=== PATIENT | male | born 1965 | race African-American/Black ===

== ENCOUNTER → 2017-04-20 | Outpatient (CLI) | payer BC ==
[2016-05-31 08:56] VITALS: BP 154/95
[~2017-04-20] MED LIST: ASPI325T11 PO; ASPI81TA2 PO; ATOR40TA59 PO; CLOP75TA PO; CYAN25008 PO; FOLI1TAB16 PO; FURO-69 PO; FURO40TA4 PO; LISI10TA2 PO; METO25TA4 PO; POTA10TA12 PO; THIA100T4 PO
[2017-04-20 13:19] LABS: CREATININE 1.1 mg/dL (0.7-1.3); GFR 85.4
[2017-04-20 13:20] LABS: CALCIUM 8.9 mg/dL (8.5-10.1)
== END | disposition home or self-care (01) ==
LOC: LAB 12:53
PROVIDERS: ATTEND Nurse Practitioner
DX: I50.22 Chronic systolic (congestive) heart failure (principal)
CPT/HCPCS: 36415; 80048

== ENCOUNTER → 2017-08-04 | Outpatient (CLI) | payer BC ==
[2016-05-31 08:56] VITALS: BP 154/95
[~2017-08-04] MED LIST changes: +ASPI-630 PO; -ASPI81TA2 PO
--- NOTE | 2017-08-04 12:24 | CARD ---
APPROVED REPORT EXAM: Two-dimensional and M-mode echocardiogram with Doppler and color Doppler. Other Information Quality : GoodHR: 60bpm Rhythm : Pacemaker INDICATION Cardiomyopathy 2D DIMENSIONS Left Atrium(2D)4.5 (1.6-4.0cm)IVSd0.9 (0.7-1.1cm) Aortic Root(2D)2.7 (2.0-3.7cm)LVDd5.5 (3.9-5.9cm) LVOT Diameter2.3 (1.8-2.4cm)PWd0.8 (0.7-1.1cm) LVDs4.6 (2.5-4.0cm)FS (%) 17.8 % SV54.9 mlLVEF(%)36.5 (>50%) Aortic Valve AoV Peak Tor.100.9cm/sAoV VTI21.8cm AO Peak GR.4.1mmHgLVOT Peak Tor.79.5cm/s AO Mean GR.2mmHgAVA (VMAX)3.24cm2 Mitral Valve MV E Lvldmgrr81.3cm/sMV E Peak Gr.4mmHg MV DECEL [id number] A Kjcykmqt02.3cm/s MV E Mean Gr.1mmHgE/A Ratio1.2 MV A Ofsdccbx19sn Pulmonary Valve PV Peak Roomnxeu29.1cm/s Tricuspid Valve TR P. Btuiavcj098ou/sTR Peak Gr.31mmHg Pulmonary Vein S1 Ebotntks31.6cm/sD2 Larcnrvu88.9cm/s PVa [id number] LEFT VENTRICLE The left ventricle is normal size. There is normal left ventricular wall thickness. Left ventricle sy stolic function is moderately impaired. The Ejection Fraction is 30-35%. Akinetic base to mid inferio r and posterior [place]. The left ventricular diastolic function and filling is normal for age. No left ventricle thrombus noted on this study. RIGHT VENTRICLE The right ventricle is normal size. There is normal right ventricular wall thickness. The right ventr icular systolic function is normal. There is a pacemaker lead in the right ventricle. ATRIA The left atrium size is normal. The right atrium size is normal. The interatrial septum is intact wit h no evidence for an atrial septal defect or patent foramen ovale as noted on 2-D or Doppler imaging. AORTIC VALVE The aortic valve is mildly sclerotic. The aortic valve is trileaflet. Doppler and Color Flow revealed no significant aortic regurgitation. There is no significant aortic valvular stenosis. MITRAL VALVE Mitral annular calcification is mild. The mitral valve leaflets are thickened. There is no evidence o f mitral valve prolapse. There is no mitral valve stenosis. Doppler and Color Flow revealed mild mitr al regurgitation. TRICUSPID VALVE Doppler and Color Flow revealed mild tricuspid regurgitation. The pulmonary artery systolic pressure is estimated at 34 mmHg. There is mild pulmonary hypertension. PULMONIC VALVE The pulmonary valve is normal in structure and function. Doppler and Color Flow revealed no pulmonic valvular regurgitation. There is no pulmonic valvular stenosis. GREAT VESSELS The aortic root is normal in size. The ascending aorta is normal in size. The pulmonary artery is nor mal. The IVC is normal in size and collapses >50% with inspiration. PERICARDIAL EFFUSION There is no evidence of significant pericardial effusion. Critical Notification Critical Value: No <Conclusion> Left ventricle systolic function is moderately impaired. Akinetic base-mid inferior and posterior [place]. The Ejection Fraction is 30-35%. Mild mitral regurgitation. Mild tricuspid regurgitation. The pulmonary artery systolic pressure is estimated at 34 mmHg. There is no evidence of significant pericardial effusion.
== END | disposition home or self-care (01) ==
LOC: ECHO 11:00
PROVIDERS: ATTEND Internal Medicine Cardiovascular Disease
DX: I08.1 Rheumatic disorders of both mitral and tricuspid valves (principal); I42.9 Cardiomyopathy, unspecified
CPT/HCPCS: 93306

== ENCOUNTER → 2019-06-23 | Outpatient (CLI) | payer BC ==
[2016-05-31 08:56] VITALS: BP 154/95
[~2019-06-23] MED LIST changes: -THIA100T4 PO; +THIA100T57 PO
--- NOTE | 2019-06-23 09:22 | CARD ---
MR#: [id number] Date of Study: 06/23/2019 Ordering Physician: TIFFANY AYALA, Referring Physician: TIFFANY AYALA, Tech: Yesi Ramirez BEATRIZ APPROVED REPORT EXAM: Two-dimensional and M-mode echocardiogram with Doppler and color Doppler. Other Information Quality : GoodHR: 72bpm Rhythm : NSR INDICATION Cardiomyopathy 2D DIMENSIONS RVDd2.9 (2.9-3.5cm)Left Atrium(2D)4.3 (1.6-4.0cm) IVSd0.9 (0.7-1.1cm)Aortic Root(2D)3.1 (2.0-3.7cm) LVDd5.8 (3.9-5.9cm)LVOT Diameter2.1 (1.8-2.4cm) PWd0.8 (0.7-1.1cm)LVDs4.5 (2.5-4.0cm) FS (%) 22.7 %SV74.1 ml LVEF(%)45.0 (>50%) M-Mode DIMENSIONS Left Atrium(MM)4.06 (2.5-4.0cm)Aortic Root3.51 (2.2-3.7cm) Aortic Valve AoV Peak Tor.104.2cm/sAoV VTI22.7cm AO Peak GR.4.3mmHgLVOT Peak Tor.86.6cm/s AO Mean GR.3mmHgAVA (VMAX)2.96cm2 SHAKEEL (VTI)3.00cm2 Mitral Valve MV E Yidqlqcy59.9cm/sMV DECEL QTQQ874yf MV A Dsfyleeu71.0cm/sE/A Ratio1.2 Tricuspid Valve TR P. Rlnfwhkw005uc/sRAP PJDSDMRS0zbDq TR Peak Gr.17tpOkSDKO89qfSw Pulmonary Vein S1 Csoezrgi98.1cm/sD2 Vkcknppw24.7cm/s PVa [id number] LEFT VENTRICLE The Left Ventricle is borderline dilated. There is normal left ventricular wall thickness. The ejecti on fraction is moderately impaired. EF 30-35% There is global hypokinesis of the left ventricle. The posterolateral wall is severely hypokinetic. Transmitral Doppler flow pattern is Grade II-pseudonorma l filling dynamics. RIGHT VENTRICLE The right ventricle is normal size. There is normal right ventricular wall thickness. The right ventr icular systolic function is normal. Pacer lead noted in RV/RA. ATRIA The left atrium is mildly dilated. The right atrium size is normal. The interatrial septum is intact with no evidence for an atrial septal defect or patent foramen ovale as noted on 2-D or Doppler imagi ng. AORTIC VALVE The aortic valve is normal in structure and function. The aortic valve is trileaflet. Doppler and Col or Flow revealed no significant aortic regurgitation. There is no significant aortic valvular stenosi s. There is no aortic valvular vegetation. MITRAL VALVE The mitral valve is thickened but opens well. There is no evidence of mitral valve prolapse. There is no mitral valve stenosis. Doppler and Color-flow revealed moderate mitral regurgitation. TRICUSPID VALVE The tricuspid valve is normal in structure and function. Doppler and Color Flow revealed trace tricus pid regurgitation. The PA pressure was estimated at 29 mmHg. There is no tricuspid valve prolapse or vegetation. There is no tricuspid valve stenosis. PULMONIC VALVE Doppler and Color Flow revealed no pulmonic valvular regurgitation. There is no pulmonic valvular raven nosis. GREAT VESSELS The aortic root is normal in size. The ascending aorta is normal in size. The IVC is normal in size a nd collapses >50% with inspiration. PERICARDIAL EFFUSION There is no evidence of significant pericardial effusion. Critical Notification Critical Value: No <Conclusion> The ejection fraction is moderately impaired. EF 30-35% There is global hypokinesis of the left ventricle. The posterolateral wall is severely hypokinetic. Pacer lead noted in RV/RA. Doppler and Color-flow revealed moderate mitral regurgitation. Signed by : Elio Méndez, Electronically Approved : 06/23/2019 09:22:18
== END | disposition home or self-care (01) ==
LOC: ECHO 07:39
PROVIDERS: ATTEND Internal Medicine Cardiovascular Disease
DX: I34.0 Nonrheumatic mitral (valve) insufficiency (principal)
CPT/HCPCS: 93306

== ENCOUNTER 2019-08-11 11:49 | Inpatient (IN) | payer BC ==
[~2019-08-11] VITALS: Ht 180.3 cm; Wt 72.6 kg
--- NOTE | 2019-08-11 12:26 | PHYS DOC ---
Past Medical History Past Medical History: A-Fib, Diabetes-Type II, High Cholesterol, Hypertension, [place] Past Surgical History: Pacemaker, Other Additional Past Surgical Histo: cardiac cath with stent placement Alcohol Use: Heavy Drug Use: None Adult General Chief Complaint Chief Complaint: BLOODY STOOL HPI HPI Patient is a pleasant 54-year-old male, with a past history of cardiomyopathy, on aspirin and Plavix, who presents to the emergency department for evaluation. He states he had 2-3 episodes of grossly bloody diarrhea this morning. He denies any pain. He has not had any fevers or chills, nausea, vomiting, denies any recent antibiotic use. There are no alleviating or exacerbating factors to his symptoms. He does not report any history of hemorrhoids. Review of Systems Review of Systems Constitutional: Denies fever or chills [] Eyes: Denies change in visual acuity, redness, or eye pain [] HENT: Denies nasal congestion or sore throat [] Respiratory: Denies cough or shortness of breath [] Cardiovascular: The patient denies any shortness of breath, chest pain, palpitations, or orthopnea [] GI: Denies abdominal pain, nausea, vomiting, or brian diarrhea [] : Denies dysuria or hematuria [] Musculoskeletal: Denies back pain or joint pain [] Integument: Denies rash or skin lesions [] Neurologic: Denies headache, focal weakness or sensory changes [] Endocrine: Denies polyuria or polydipsia [] All other systems were reviewed and found to be within normal limits, except as documented in this note. Allergies Allergies Allergies Coded Allergies Type Severity Reaction Last Updated Verified No Known Drug Allergies 12/05/15 No Physical Exam Physical Exam PHYSICAL EXAM: CONSTITUTIONAL: Well developed, well nourished HEAD: normocephalic, atraumatic EENT: PERRL, EOMI. Conjunctivae normal color, sclerae non-icteric; moist mucous membranes. NECK: Supple, non-tender; no meningismus. LUNGS: Lungs CTA, breathing even and unlabored. Normal air movement. HEART: Regular rate and rhythm, no murmur CHEST: No deformity; non-tender ABDOMEN: The abdomen is soft, and non-tender, no masses or bruits. EXTREM: Normal ROM; no deformity, no calf tenderness. Normal pulses palpable in all extremities. There is no pedal edema. SKIN: No rash; no diaphoresis NEURO: Alert; normal speech and cognition; CN's grossly intact; strength grossly intact without focal deficit. BACK: No CVA TTP. RECTAL EXAM: No hemorrhoids or fissures noted. Current Patient Data Vital Signs Vital Signs Date Time Temp Pulse Resp B/P (MAP) Pulse Ox O2 Delivery O2 Flow Rate FiO2 08/11/19 12:00 98.8 73 28 177/92 (120) 98 Room Air 98.8 Lab Values Laboratory Tests Test 08/11/19 12:15 White Blood Count 10.1 x10^3/uL (4.0-11.0) Red Blood Count 5.35 x10^6/uL (4.30-5.70) Hemoglobin 15.6 g/dL (13.0-17.5) Hematocrit 46.3 % (39.0-53.0) Mean Corpuscular Volume 87 fL (79-100) Mean Corpuscular Hemoglobin 29 pg (25-35) Mean Corpuscular Hemoglobin Concent 34 g/dL (31-37) Red Cell Distribution Width 14.2 % (11.5-14.5) Platelet Count 264 x10^3/uL (140-400) Neutrophils (%) (Auto) 59 % (31-73) Lymphocytes (%) (Auto) 31 % (24-48) Monocytes (%) (Auto) 8 % (0-9) Eosinophils (%) (Auto) 1 % (0-3) Basophils (%) (Auto) 1 % (0-3) Neutrophils # (Auto) 6.0 x10^3/uL (1.8-7.7) Lymphocytes # (Auto) 3.1 x10^3/uL (1.0-4.8) Monocytes # (Auto) 0.8 x10^3/uL (0.0-1.1) Eosinophils # (Auto) 0.0 x10^3/uL (0.0-0.7) Basophils # (Auto) 0.1 x10^3/uL (0.0-0.2) Prothrombin Time 13.2 SEC (11.7-14.0) Prothrombin Time INR 1.0 (0.8-1.1) Sodium Level 142 mmol/L (136-145) Potassium Level 3.7 mmol/L (3.5-5.1) Chloride Level 107 mmol/L (98-107) Carbon Dioxide Level 24 mmol/L (21-32) Anion Gap 11 (6-14) Blood Urea Nitrogen 12 mg/dL (8-26) Creatinine 1.0 mg/dL (0.7-1.3) Estimated GFR (Cockcroft-Gault) 94.2 BUN/Creatinine Ratio 12 (6-20) Glucose Level 111 mg/dL (70-99) H Calcium Level 9.1 mg/dL (8.5-10.1) Total Bilirubin 0.3 mg/dL (0.2-1.0) Aspartate Amino Transferase (AST) 16 U/L (15-37) Alanine Aminotransferase (ALT) 20 U/L (16-63) Alkaline Phosphatase 140 U/L (46-116) H Total Protein 7.6 g/dL (6.4-8.2) Albumin 3.6 g/dL (3.4-5.0) Albumin/Globulin Ratio 0.9 (1.0-1.7) L Laboratory Tests 08/11/19 12:15 Laboratory Tests 08/11/19 12:15 EKG EKG [] Radiology/Procedures Radiology/Procedures [] Course & Med Decision Making Course & Med Decision Making Pertinent Lab studies reviewed. (See chart for details) []2:00 PM: The patient's condition remains a stable. Although his hemoglobin is normal, given the nature of his bleeding, maroonish stool, as well as his use of aspirin and Plavix, and history of cardiomyopathy, I do believe he warrants more prompt a diagnosis and evaluation. Thus the hospitalist has graciously agreed to admit the patient for further evaluation and GI consult. Dragon Disclaimer Dragon Disclaimer This electronic medical record was generated, in whole or in part, using a voice recognition dictation system. Departure Departure Impression: Primary Impression: Rectal bleeding Additional Impression: Cardiomyopathy Disposition: 09 ADMITTED INPATIENT Admitting Physician: HIMS Condition: STABLE Referrals: NO PCP (PCP) Problem Qualifiers AUREA JONES MD Aug 11, 2019 12:26
[2019-08-11 12:27] LABS: BASO # 0.1 x10^3/uL (0.0-0.2); BASO % 1 % (0-3); EOS % 1 % (0-3); HEMATOCRIT 46.3 % (39.0-53.0); HEMOGLOBIN 15.6 g/dL (13.0-17.5); LYMPH # 3.1 x10^3/uL (1.0-4.8); LYMPH % 31 % (24-48); MEAN CORPUSCULAR HEMOGLOBIN 29 pg (25-35); MEAN CORPUSCULAR HGB CONC 34 g/dL (31-37); MEAN CORPUSCULAR VOLUME 87 fL (79-100); MONO # 0.8 x10^3/uL (0.0-1.1); MONO % 8 % (0-9); NEUT % 59 % (31-73); PLATELET COUNT 264 x10^3/uL (140-400); RED BLOOD COUNT 5.35 x10^6/uL (4.30-5.70); RED CELL DISTRIBUTION WIDTH 14.2 % (11.5-14.5); WHITE BLOOD COUNT 10.1 x10^3/uL (4.0-11.0)
[2019-08-11 12:34] LABS: PROTHROMBIN TIME PATIENT 13.2 SEC (11.7-14.0)
[2019-08-11 12:43] LABS: CALCIUM 9.1 mg/dL (8.5-10.1); GFR 94.2; POTASSIUM 3.7 mmol/L (3.5-5.1)
[2019-08-11 12:47] LABS: ALBUMIN 3.6 g/dL (3.4-5.0); ALBUMIN/GLOBULIN RATIO 0.9 (1.0-1.7); TOTAL BILIRUBIN 0.3 mg/dL (0.2-1.0); TOTAL PROTEIN 7.6 g/dL (6.4-8.2)
--- NOTE | 2019-08-11 14:02 | PDOC1 ---
History and Physical Date of Admission Date of Admission DATE: 08/11/19 TIME: 14:02 Identification/Chief Complaint Chief Complaint seen in er , 54-year-old male, with a past history of cardiomyopathy, on aspirin and Plavix, who presents to the emergency department for evaluation. He states he had 2-3 episodes of grossly bloody diarrhea this morning. He denies any pain. He has not had any fevers or chills, nausea, vomiting, denies any recent antibiotic use. There are no alleviating or exacerbating factors to his symptoms. He does not report any history of hemorrhoids. no colonoscopy hx passed about a cup of bright red blood this AM Past Medical History Past Medical History Past Medical History Past Medical History: A-Fib, Diabetes-Type II, High Cholesterol, Hypertension, [place] Past Surgical History: Pacemaker, Other Additional Past Surgical Histo: cardiac cath with stent placement Alcohol Use: Heavy Drug Use: None Insertion of dual chamber ICD via the left subclavian approach. fhx htn Cardiovascular: CAD, HTN, Hyperlipidemia Pulmonary: No pertinent hx CENTRAL NERVOUS SYSTEM: Other GI: No pertinent hx Heme/Onc: No pertinent hx Hepatobiliary: No pertinent hx Psych: No pertinent hx Musculoskeletal: Osteoarthritis Rheumatologic: No pertinent hx Infectious disease: No pertinent hx Renal/: No pertinent hx Endocrine: No pertinent hx Dermatology: No pertinent hx Past Surgical History Past Surgical History: Other Family History Family History: Coronary Artery Disease, High Cholestrol Social History Smoke: <1 pack per day ALCOHOL: heavy Drugs: None Current Problem List Problem List Problems Medical Problems: (1) Cardiomyopathy Status: Acute (2) Rectal bleeding Status: Acute Current Medications Current Medications Active Scripts Active Klor-Con M10 (Potassium Chloride) 10 Meq Tab.er.prt 10 Meq PO DAILYWBKFT Folic Acid 1 Mg Tablet 1 Mg PO DAILY Metoprolol Tartrate 25 Mg Tablet 25 Mg PO BID Lisinopril 10 Mg Tablet 10 Mg PO DAILY Clopidogrel (Clopidogrel Bisulfate) 75 Mg Tablet 75 Mg PO DAILYWBKFT Atorvastatin Calcium 40 Mg Tablet 40 Mg PO QHS Aspirin Ec (Aspirin) 325 Mg Tablet.dr 325 Mg PO DAILYWBKFT Reported Lasix (Furosemide) 20 Mg Tablet 1 Tab PO DAILY Vitamin B12 (Cyanocobalamin (Vitamin B-12)) 2,500 Mcg Tablet 2,500 Mcg PO DAILY Allergies Allergies: Coded Allergies: No Known Drug Allergies (Unverified , 12/05/15) ROS Review of System Review of Systems Review of Systems Constitutional: Denies fever or chills [] Eyes: Denies change in visual acuity, redness, or eye pain [] HENT: Denies nasal congestion or sore throat [] Respiratory: Denies cough or shortness of breath [] Cardiovascular: The patient denies any shortness of breath, chest pain, palpitations, or orthopnea [] GI: Denies abdominal pain, nausea, vomiting, or brian diarrhea [] : Denies dysuria or hematuria [] Musculoskeletal: Denies back pain or joint pain [] Integument: Denies rash or skin lesions [] Neurologic: Denies headache, focal weakness or sensory changes [] Endocrine: Denies polyuria or polydipsia [] 14 PT systems were reviewed and found to be within normal limits, except as documented General: No: Chills, Night Sweats, Fatigue, Malaise, Appetite, Other ALLERGY AND IMMUNOLOGY: No: Hives, Insect Bite Sensitivity, Itchy/Watery Eyes, Nasal Congestion, Post Nasal Drip, Seasonal Allergies, Other Hematological and Lymphatic: YES: Bleeding Problems; No: Blood Clots, Blood Transfusions, Brusing, Night Sweats, Pallor, Swollen Lymph Nodes, Other Gastrointestinal: Yes Hematochezia Physical Exam Physical Exam Physical Exam Physical Exam PHYSICAL EXAM: CONSTITUTIONAL: Well developed, well nourished HEAD: normocephalic, atraumatic EENT: PERRL, EOMI. Conjunctivae normal color, sclerae non-icteric; moist mucous membranes. NECK: Supple, non-tender; no meningismus. LUNGS: Lungs CTA, breathing even and unlabored. Normal air movement. HEART: Regular rate and rhythm, no murmur CHEST: No deformity; non-tender ABDOMEN: The abdomen is soft, and non-tender, no masses or bruits. EXTREM: Normal ROM; no deformity, no calf tenderness. Normal pulses palpable in all extremities. There is no pedal edema. SKIN: No rash; no diaphoresis NEURO: Alert; normal speech and cognition; CN's grossly intact; strength grossly intact without focal deficit. BACK: No CVA TTP. RECTAL EXAM: No hemorrhoids or fissures noted. IN ER General: Oriented X3, Cooperative HEENT: Atraumatic, EOMI, Mucous membr. moist/pink Lungs: Clear to auscultation, Normal air movement Heart: S1S2, RRR, no thrills, no gallops Abdomen: Soft PELVIC: Examination not indicated Extremities: No cyanosis Neuro: Normal speech, Strength at 5/5 X4 ext, Cranial nerves 3-12 NL Psych/Mental Status: Mental status NL, Mood NL Vitals Vitals Vital Signs Date Time Temp Pulse Resp B/P (MAP) Pulse Ox O2 Delivery O2 Flow Rate FiO2 08/11/19 12:00 98.8 73 28 177/92 (120) 98 Room Air 98.8 Labs Labs Laboratory Tests Test 08/11/19 12:15 White Blood Count 10.1 x10^3/uL (4.0-11.0) Red Blood Count 5.35 x10^6/uL (4.30-5.70) Hemoglobin 15.6 g/dL (13.0-17.5) Hematocrit 46.3 % (39.0-53.0) Mean Corpuscular Volume 87 fL (79-100) Mean Corpuscular Hemoglobin 29 pg (25-35) Mean Corpuscular Hemoglobin Concent 34 g/dL (31-37) Red Cell Distribution Width 14.2 % (11.5-14.5) Platelet Count 264 x10^3/uL (140-400) Neutrophils (%) (Auto) 59 % (31-73) Lymphocytes (%) (Auto) 31 % (24-48) Monocytes (%) (Auto) 8 % (0-9) Eosinophils (%) (Auto) 1 % (0-3) Basophils (%) (Auto) 1 % (0-3) Neutrophils # (Auto) 6.0 x10^3/uL (1.8-7.7) Lymphocytes # (Auto) 3.1 x10^3/uL (1.0-4.8) Monocytes # (Auto) 0.8 x10^3/uL (0.0-1.1) Eosinophils # (Auto) 0.0 x10^3/uL (0.0-0.7) Basophils # (Auto) 0.1 x10^3/uL (0.0-0.2) Prothrombin Time 13.2 SEC (11.7-14.0) Prothromb Time International Ratio 1.0 (0.8-1.1) Sodium Level 142 mmol/L (136-145) Potassium Level 3.7 mmol/L (3.5-5.1) Chloride Level 107 mmol/L (98-107) Carbon Dioxide Level 24 mmol/L (21-32) Anion Gap 11 (6-14) Blood Urea Nitrogen 12 mg/dL (8-26) Creatinine 1.0 mg/dL (0.7-1.3) Estimated GFR (Cockcroft-Gault) 94.2 BUN/Creatinine Ratio 12 (6-20) Glucose Level 111 mg/dL (70-99) Calcium Level 9.1 mg/dL (8.5-10.1) Total Bilirubin 0.3 mg/dL (0.2-1.0) Aspartate Amino Transf (AST/SGOT) 16 U/L (15-37) Alanine Aminotransferase (ALT/SGPT) 20 U/L (16-63) Alkaline Phosphatase 140 U/L (46-116) Total Protein 7.6 g/dL (6.4-8.2) Albumin 3.6 g/dL (3.4-5.0) Albumin/Globulin Ratio 0.9 (1.0-1.7) Laboratory Tests Test 08/11/19 12:15 White Blood Count 10.1 x10^3/uL (4.0-11.0) Red Blood Count 5.35 x10^6/uL (4.30-5.70) Hemoglobin 15.6 g/dL (13.0-17.5) Hematocrit 46.3 % (39.0-53.0) Mean Corpuscular Volume 87 fL (79-100) Mean Corpuscular Hemoglobin 29 pg (25-35) Mean Corpuscular Hemoglobin Concent 34 g/dL (31-37) Red Cell Distribution Width 14.2 % (11.5-14.5) Platelet Count 264 x10^3/uL (140-400) Neutrophils (%) (Auto) 59 % (31-73) Lymphocytes (%) (Auto) 31 % (24-48) Monocytes (%) (Auto) 8 % (0-9) Eosinophils (%) (Auto) 1 % (0-3) Basophils (%) (Auto) 1 % (0-3) Neutrophils # (Auto) 6.0 x10^3/uL (1.8-7.7) Lymphocytes # (Auto) 3.1 x10^3/uL (1.0-4.8) Monocytes # (Auto) 0.8 x10^3/uL (0.0-1.1) Eosinophils # (Auto) 0.0 x10^3/uL (0.0-0.7) Basophils # (Auto) 0.1 x10^3/uL (0.0-0.2) Prothrombin Time 13.2 SEC (11.7-14.0) Prothromb Time International Ratio 1.0 (0.8-1.1) Sodium Level 142 mmol/L (136-145) Potassium Level 3.7 mmol/L (3.5-5.1) Chloride Level 107 mmol/L (98-107) Carbon Dioxide Level 24 mmol/L (21-32) Anion Gap 11 (6-14) Blood Urea Nitrogen 12 mg/dL (8-26) Creatinine 1.0 mg/dL (0.7-1.3) Estimated GFR (Cockcroft-Gault) 94.2 BUN/Creatinine Ratio 12 (6-20) Glucose Level 111 mg/dL (70-99) Calcium Level 9.1 mg/dL (8.5-10.1) Total Bilirubin 0.3 mg/dL (0.2-1.0) Aspartate Amino Transf (AST/SGOT) 16 U/L (15-37) Alanine Aminotransferase (ALT/SGPT) 20 U/L (16-63) Alkaline Phosphatase 140 U/L (46-116) Total Protein 7.6 g/dL (6.4-8.2) Albumin 3.6 g/dL (3.4-5.0) Albumin/Globulin Ratio 0.9 (1.0-1.7) Images Images EXAM: Two-dimensional and M-mode echocardiogram with Doppler and color Doppler. Other Information Quality : Good HR: 72bpm Rhythm : NSR INDICATION Cardiomyopathy 2D DIMENSIONS RVDd 2.9 (2.9-3.5cm) Left Atrium(2D) 4.3 (1.6-4.0cm) IVSd 0.9 (0.7-1.1cm) Aortic Root(2D) 3.1 (2.0-3.7cm) LVDd 5.8 (3.9-5.9cm) LVOT Diameter 2.1 (1.8-2.4cm) PWd 0.8 (0.7-1.1cm) LVDs 4.5 (2.5-4.0cm) FS (%) 22.7 % SV 74.1 ml LVEF(%) 45.0 (>50%) M-Mode DIMENSIONS Left Atrium(MM) 4.06 (2.5-4.0cm) Aortic Root 3.51 (2.2-3.7cm) Aortic Valve AoV Peak Tor. 104.2cm/s AoV VTI 22.7cm AO Peak GR. 4.3mmHg LVOT Peak Tor. 86.6cm/s AO Mean GR. 3mmHg SHAKEEL (VMAX) 2.96cm2 SHAKEEL (VTI) 3.00cm2 Mitral Valve MV E Velocity 86.9cm/s MV DECEL TIME 220ms MV A Velocity 71.0cm/s E/A Ratio 1.2 Tricuspid Valve TR P. Velocity 257cm/s RAP ESTIMATE 3mmHg TR Peak Gr. 26mmHg RVSP 29mmHg Pulmonary Vein S1 Velocity 53.1cm/s D2 Velocity 47.7cm/s PVa duration 129msec LEFT VENTRICLE The Left Ventricle is borderline dilated. There is normal left ventricular wall thickness. The ejection fraction is moderately impaired. EF 30-35% There is global hypokinesis of the left ventricle. The posterolateral wall is severely hypokinetic. Transmitral Doppler flow pattern is Grade II-pseudonormal filling dynamics. RIGHT VENTRICLE The right ventricle is normal size. There is normal right ventricular wall thickness. The right ventricular systolic function is normal. Pacer lead noted in RV/RA. ATRIA The left atrium is mildly dilated. The right atrium size is normal. The interatrial septum is intact with no evidence for an atrial septal defect or patent foramen ovale as noted on 2-D or Doppler imaging. AORTIC VALVE The aortic valve is normal in structure and function. The aortic valve is trileaflet. Doppler and Color Flow revealed no significant aortic regurgitation. There is no significant aortic valvular stenosis. There is no aortic valvular vegetation. MITRAL VALVE The mitral valve is thickened but opens well. There is no evidence of mitral valve prolapse. There is no mitral valve stenosis. Doppler and Color-flow revealed moderate mitral regurgitation. TRICUSPID VALVE The tricuspid valve is normal in structure and function. Doppler and Color Flow revealed trace tricuspid regurgitation. The PA pressure was estimated at 29 mmHg. There is no tricuspid valve prolapse or vegetation. There is no tricuspid valve stenosis. PULMONIC VALVE Doppler and Color Flow revealed no pulmonic valvular regurgitation. There is no pulmonic valvular stenosis. GREAT VESSELS The aortic root is normal in size. The ascending aorta is normal in size. The I VC is normal in size and collapses >50% with inspiration. PERICARDIAL EFFUSION There is no evidence of significant pericardial effusion. Critical Notification Critical Value: No <Conclusion> The ejection fraction is moderately impaired. EF 30-35% There is global hypokinesis of the left ventricle. The posterolateral wall is severely hypokinetic. Pacer lead noted in RV/RA. Doppler and Color-flow revealed moderate mitral regurgitation. Signed by : Elio Méndez, Electronically Approved : 06/23/2019 09:22:18 VTE Prophylaxis Ordered VTE Prophylaxis Devices: Yes VTE Pharmacological Prophylaxi: Contraindicated Assessment/Plan Assessment/Plan IMPRESSION Rectal bleeding, ACUTE CAD - on Plavix and ASA Daily alcohol 2 DRINKS A DAY, tobacco use Insertion of dual chamber ICD CARDIOMYOPATHY HX ECHO, RECENT ejection fraction is moderately impaired. EF 30-35% global hypokinesis of the left ventricle. The posterolateral wall is severely hypokinetic. Pacer lead noted in RV/RA. moderate mitral regurgitation. --PLAN ADMIT Monitor for bleeding - consider bleeding scan. Try clears and ADAT. PPI. Outpt colonoscopy. H/H Q 8 HRS SCD,S CONSULT CARDIOLOGY 59 MIN PT EXAM, CHART REVIEW, > 50% OF TIME SPENT WITH EXAM, CHART REVIEW, PT CARE COORDINATION ALAN MOREIRA MD Aug 11, 2019 14:02
[2019-08-11 14:40] VITALS: BP 144/94
--- NOTE | 2019-08-11 14:48 | PDOC2 ---
GI CONSULT Reason For Consult: LGIB HPI: HPI: 54 y/o male seen in ER. Had a stool early this morning before dentist appt - didn't look at it. After appt, felt urge to stool again but passed red blood (without stool). Recurred once in ER - seemed darker then. No abd pain, dizziness, or sweats. After eating a piece of pizza from [employer] last week, had vomiting and diarrhea that quickly resolved. Tolerating PO since and having normal stools. Denies reflux/heartburn, dysphagia, change in appetite, or weight loss. H/o CAD on Plavix and ASA. No previous EGD or colonoscopy. No GB, liver, pancreas, or PUD history. No NSAIDs. PMH: PMH: ICM, NC, CAD w/ stents, HTN, HLD, OA, AICD FH: Family History: No pertinent hx (denies GI cancers) Social History: ALCOHOL: other (2 shots before bed) Drugs: None ROS: GEN: Denies fevers, chills, sweats HEENT: Denies blurred vision, sore throat CV: Denies chest pain RESP: Denies shortness of air, cough GI: Per HPI : Denies hematuria, dysuria ENDO: Denies weight changes NEURO: Denies confusion, dizziness MSK: Denies weakness, joint pain/swelling SKIN: Denies jaundice, pruritus Vitals: Vitals: Vital Signs Date Time Temp Pulse Resp B/P (MAP) Pulse Ox O2 Delivery O2 Flow Rate FiO2 08/11/19 14:00 60 16 137/87 (104) 98 Room Air 08/11/19 12:00 98.8 98.8 Labs: Labs: Laboratory Tests Test 08/11/19 12:15 White Blood Count 10.1 x10^3/uL (4.0-11.0) Red Blood Count 5.35 x10^6/uL (4.30-5.70) Hemoglobin 15.6 g/dL (13.0-17.5) Hematocrit 46.3 % (39.0-53.0) Mean Corpuscular Volume 87 fL (79-100) Mean Corpuscular Hemoglobin 29 pg (25-35) Mean Corpuscular Hemoglobin Concent 34 g/dL (31-37) Red Cell Distribution Width 14.2 % (11.5-14.5) Platelet Count 264 x10^3/uL (140-400) Neutrophils (%) (Auto) 59 % (31-73) Lymphocytes (%) (Auto) 31 % (24-48) Monocytes (%) (Auto) 8 % (0-9) Eosinophils (%) (Auto) 1 % (0-3) Basophils (%) (Auto) 1 % (0-3) Neutrophils # (Auto) 6.0 x10^3/uL (1.8-7.7) Lymphocytes # (Auto) 3.1 x10^3/uL (1.0-4.8) Monocytes # (Auto) 0.8 x10^3/uL (0.0-1.1) Eosinophils # (Auto) 0.0 x10^3/uL (0.0-0.7) Basophils # (Auto) 0.1 x10^3/uL (0.0-0.2) Prothrombin Time 13.2 SEC (11.7-14.0) Prothromb Time International Ratio 1.0 (0.8-1.1) Sodium Level 142 mmol/L (136-145) Potassium Level 3.7 mmol/L (3.5-5.1) Chloride Level 107 mmol/L (98-107) Carbon Dioxide Level 24 mmol/L (21-32) Anion Gap 11 (6-14) Blood Urea Nitrogen 12 mg/dL (8-26) Creatinine 1.0 mg/dL (0.7-1.3) Estimated GFR (Cockcroft-Gault) 94.2 BUN/Creatinine Ratio 12 (6-20) Glucose Level 111 mg/dL (70-99) Calcium Level 9.1 mg/dL (8.5-10.1) Total Bilirubin 0.3 mg/dL (0.2-1.0) Aspartate Amino Transf (AST/SGOT) 16 U/L (15-37) Alanine Aminotransferase (ALT/SGPT) 20 U/L (16-63) Alkaline Phosphatase 140 U/L (46-116) Total Protein 7.6 g/dL (6.4-8.2) Albumin 3.6 g/dL (3.4-5.0) Albumin/Globulin Ratio 0.9 (1.0-1.7) Allergies: Coded Allergies: No Known Drug Allergies (Unverified , 12/05/15) Imaging: Imaging: - PE: GEN: NAD HEENT: Atraumatic, PERRL LUNGS: CTAB HEART: RRR ABD: NABS, S/ND/NT EXTREMITY: No edema SKIN: No rashes, no jaundice NEURO/PSYCH: A & O �3 A/P: A/P: Rectal bleeding CRC screen - none CAD - on Plavix and ASA Daily alcohol use, tobacco use -- Monitor for bleeding - if recurs, consider bleeding scan. Normal vital and labs - follow. Try clears and ADAT. Empiric PPI. Outpt colonoscopy. Note stool tests ordered by ER - unclear if having diarrhea? CAMELIA WALDROP Aug 11, 2019 14:48
[2019-08-11] MEDS ORDERED: diphenhydrAMINE 50 MG/ML VIAL IVP PRN (15:30)
[2019-08-11] MEDS ORDERED: cloNIDine HCL 0.1 MG TABLET PO PRN (15:30)
[2019-08-11] MEDS ORDERED: LORazepam 1 MG TABLET PO PRN ×2 (15:30)
--- NOTE | 2019-08-11 16:12 | PDOC2 ---
CARDIAC CONSULT DATE OF CONSULT Date of Consult DATE: 08/11/19 TIME: 15:56 REASON FOR CONSULT Reason for Consult: Rectal bleed on plavix REFERRING PHYSICIAN Referring Physician: Fullbright SOURCE Source: Chart review, Patient HISTORY OF PRESENT ILLNESS HISTORY OF PRESENT ILLNESS This is a 54 yo male admitted for complains of bloody diarrhea this afternoon. He had BM this morning but he did not looked at it. He had another one in ED which he said it was bloody as well. This afternoon he said it was bright red, bloody stool. No abdominal pain. This is the first time this happened to him. No chest pain, palpitations, SOA, PND, or orthopnea. He has been taking reg dose ASA, plavix and no aleve or ibuprofen. He drinks regularly with ETOH, tequila 4 oz at least nightly mixed with coke. He also continues to smoke tobacco. PAST MEDICAL HISTORY Past Medical History Cardiovascular: CAD, HTN, Hyperlipidemia, CHF ICM Pulmonary: No pertinent hx CENTRAL NERVOUS SYSTEM: Other (No pertinent history) GI: No pertinent hx Heme/Onc: No pertinent hx Hepatobiliary: No pertinent hx Psych: No pertinent hx Musculoskeletal: Osteoarthritis Rheumatologic: No pertinent hx Infectious disease: No pertinent hx ENT: No pertinent hx Renal/: No pertinent hx Endocrine: No pertinent hx Dermatology: No pertinent hx FAMILY HISTORY Family History: Coronary Artery Disease (mother and father) SOCIAL HISTORY Smoke: <1 pack per day ALCOHOL: heavy Drugs: None Lives: with Family PAST SURGICAL HISTORY Past Surgical History cardiac cath with 2 stents LAD at [facility], AICD 05/2016, 11/2015 LCx PCI/BMS SOCIAL HISTORY Smoke: <1 pack per day ALCOHOL: other (daily ETOH use. ) Drugs: None Lives: with Family ALLERGIES ALLERGIES: Coded Allergies: No Known Drug Allergies (Unverified , 12/05/15) ROS Review of System 14 point ROS evaluated with pertinent positives noted per HPI PHYSICAL EXAM General: Alert, Oriented X3, Cooperative, No acute distress HEENT: Atraumatic, Mucous membr. moist/pink Lungs: Clear to auscultation, Normal air movement Heart: Regular rate, Normal S1, Normal S2, Other (3/6 apical systolic murmur) Abdomen: Soft, No tenderness Extremities: No cyanosis, No edema Skin: No breakdown, No significant lesion Neuro: Normal speech, Sensation intact Psych/Mental Status: Mental status NL, Mood NL MUSCULOSKELETAL: Osteoarthritic changes both hands VITALS/I&O VITALS/I&O: Vital Signs Date Time Temp Pulse Resp B/P (MAP) Pulse Ox O2 Delivery O2 Flow Rate FiO2 08/11/19 15:11 Room Air 08/11/19 14:40 98.0 68 16 144/94 (111) 94 98.0 LABS Lab: Laboratory Tests Test 08/11/19 12:15 White Blood Count 10.1 x10^3/uL (4.0-11.0) Red Blood Count 5.35 x10^6/uL (4.30-5.70) Hemoglobin 15.6 g/dL (13.0-17.5) Hematocrit 46.3 % (39.0-53.0) Mean Corpuscular Volume 87 fL (79-100) Mean Corpuscular Hemoglobin 29 pg (25-35) Mean Corpuscular Hemoglobin Concent 34 g/dL (31-37) Red Cell Distribution Width 14.2 % (11.5-14.5) Platelet Count 264 x10^3/uL (140-400) Neutrophils (%) (Auto) 59 % (31-73) Lymphocytes (%) (Auto) 31 % (24-48) Monocytes (%) (Auto) 8 % (0-9) Eosinophils (%) (Auto) 1 % (0-3) Basophils (%) (Auto) 1 % (0-3) Neutrophils # (Auto) 6.0 x10^3/uL (1.8-7.7) Lymphocytes # (Auto) 3.1 x10^3/uL (1.0-4.8) Monocytes # (Auto) 0.8 x10^3/uL (0.0-1.1) Eosinophils # (Auto) 0.0 x10^3/uL (0.0-0.7) Basophils # (Auto) 0.1 x10^3/uL (0.0-0.2) Prothrombin Time 13.2 SEC (11.7-14.0) Prothrombin Time INR 1.0 (0.8-1.1) Sodium Level 142 mmol/L (136-145) Potassium Level 3.7 mmol/L (3.5-5.1) Chloride Level 107 mmol/L (98-107) Carbon Dioxide Level 24 mmol/L (21-32) Anion Gap 11 (6-14) Blood Urea Nitrogen 12 mg/dL (8-26) Creatinine 1.0 mg/dL (0.7-1.3) Estimated GFR (Cockcroft-Gault) 94.2 BUN/Creatinine Ratio 12 (6-20) Glucose Level 111 mg/dL (70-99) H Calcium Level 9.1 mg/dL (8.5-10.1) Total Bilirubin 0.3 mg/dL (0.2-1.0) Aspartate Amino Transferase (AST) 16 U/L (15-37) Alanine Aminotransferase (ALT) 20 U/L (16-63) Alkaline Phosphatase 140 U/L (46-116) H Total Protein 7.6 g/dL (6.4-8.2) Albumin 3.6 g/dL (3.4-5.0) Albumin/Globulin Ratio 0.9 (1.0-1.7) L Laboratory Tests 08/11/19 12:15 Laboratory Tests 08/11/19 12:15 ECHOCARDIOGRAM ECHOCARDIOGRAM <Conclusion> The ejection fraction is moderately impaired. EF 30-35% There is global hypokinesis of the left ventricle. The posterolateral wall is severely hypokinetic. Pacer lead noted in RV/RA. Doppler and Color-flow revealed moderate mitral regurgitation. DATE: 06/23/19 0922 HEART CATH HEART CATH <Conclusion> Multivessel coronary disease with a chronically occluded right coronary artery. Previously placed stets to the LAD with mild to moderately restenosis at 25-35%. Left circumflex had a proximal subtotal lesion and a mid to distal total oc clusion of a previously placed stent with distal collateralization. Decreased LV systolic function with ejection fraction of 25-30%. Successful bare metal stent placement in the left circumflex decreasing the subtotal lesion to 0%. DATE: 12/06/15 1312 ASSESSMENT/PLAN ASSESSMENT/PLAN 1. GI bleed/hematochezia: Hgb normal so far. Suspect diverticular bleed per GI 2. CAD: multiple stents to LAD and LCx with chronically occluded RCA. Last stent placement 11/2015. Clinically stable. 3. ICM: EF 30-35%, compensated 4. AICD in situ: recently checked normal function 5. HTN: controlled 6. HLP 7. Tobaccoism 8. Chronic Alcoholism: 4 oz tequila nightly Recommendations 1. May hold antiplatelets at this time in anticipation for colonoscopy. Resume ASA/plavix once cleared by GI 2. Caution with bowel prep to avoid fluid overload. 3. Continue lasix unless volume depleted. 4. Continue with statin. Resume home entresto and metoprolol per BP trend. 5. Daily wt. 2L FR. 6. Smoking cessation and discussed curbing of ETOH. ANDREA AVILA APRN Aug 11, 2019 16:12
[2019-08-11 16:44] LABS: BARBITURATES NEG (NEG); BENZODIAZEPINES NEG (NEG); CANNABINOIDS NEG (NEG); COCAINE NEG (NEG); METHADONE NEG (NEG); OPIATES NEG (NEG); PHENCYCLIDINE NEG (NEG)
[2019-08-11 16:46] LABS: AMPHETAMINE/METHAMPHETAMINE NEG (NEG)
[2019-08-11 19:00] VITALS: BP 119/83
[2019-08-11] MEDS ORDERED: ATORVASTATIN CALCIUM 40 MG TABLET. PO SCH (21:00)
[2019-08-11] MEDS: METOPROLOL TART IMMED RELEASE 25 MG TABLET. PO SCH (21:20)
[2019-08-11 23:00] VITALS: BP 120/81
[2019-08-12 03:00] VITALS: BP 94/48
[2019-08-12 05:36] LABS: HEMATOCRIT 41.1 % (39.0-53.0); HEMOGLOBIN 13.8 g/dL (13.0-17.5); RED BLOOD COUNT 4.75 x10^6/uL (4.30-5.70); RED CELL DISTRIBUTION WIDTH 14.5 % (11.5-14.5); WHITE BLOOD COUNT 9.4 x10^3/uL (4.0-11.0)
[2019-08-12 05:56] LABS: CALCIUM 8.7 mg/dL (8.5-10.1); CREATININE 0.9 mg/dL (0.7-1.3); GFR 106.4; POTASSIUM 4.1 mmol/L (3.5-5.1)
[2019-08-12 07:00] VITALS: BP 121/76
[2019-08-12] MEDS ORDERED: PANTOPRAZOLE 40 MG TABLET.DR. PO SCH (07:30)
[2019-08-12] MEDS ORDERED: POTASSIUM CHLORIDE 10 MEQ TABLET.ER. PO SCH (08:00)
[2019-08-12] MEDS ORDERED: CLOPIDOGREL BISULFATE 75 MG TABLET PO SCH (08:00)
[2019-08-12] MEDS ORDERED: CYANOCOBALAMIN (VITAMIN B-12) 1,000 MCG TABLET. PO SCH (09:00)
[2019-08-12] MEDS ORDERED: LISINOPRIL 10 MG TABLET PO SCH (09:00)
[2019-08-12] MEDS ORDERED: FOLIC ACID 1 MG TABLET. PO SCH (09:00)
[2019-08-12] MEDS ORDERED: FUROSEMIDE 20 MG TABLET PO SCH (09:00)
[2019-08-12] MEDS ORDERED: MULTIVIT INFUSN,ADULT 4,VIT K 10 ML, THIAMINE INJ 100 MG, FOLIC ACID INJ 1 MG in IV NOR... IV SCH (09:00)
[2019-08-12] MEDS: METOPROLOL TART IMMED RELEASE 25 MG TABLET. PO SCH (09:13)
--- NOTE | 2019-08-12 09:20 | PDOC ---
Subjective: Subjective: "Staving." Had another episode of bleeding - red blood w/ brown stool - "less" and "telecommunication operator." Objective: Objective: Reviewed cardiology note - holding antiplatelets in anticipation of colonoscopy. Vital Signs: Vital Signs Date Time Temp Pulse Resp B/P (MAP) Pulse Ox O2 Delivery O2 Flow Rate FiO2 08/12/19 09:14 55 121/76 08/12/19 07:00 98.2 16 97 Room Air 98.2 Labs: Laboratory Tests Test 08/11/19 12:15 08/11/19 16:15 08/12/19 04:30 White Blood Count 10.1 x10^3/uL 9.4 x10^3/uL Red Blood Count 5.35 x10^6/uL 4.75 x10^6/uL Hemoglobin 15.6 g/dL 13.8 g/dL Hematocrit 46.3 % 41.1 % Mean Corpuscular Volume 87 fL 87 fL Mean Corpuscular Hemoglobin 29 pg 29 pg Mean Corpuscular Hemoglobin Concent 34 g/dL 34 g/dL Red Cell Distribution Width 14.2 % 14.5 % Platelet Count 264 x10^3/uL 235 x10^3/uL Neutrophils (%) (Auto) 59 % Lymphocytes (%) (Auto) 31 % Monocytes (%) (Auto) 8 % Eosinophils (%) (Auto) 1 % Basophils (%) (Auto) 1 % Neutrophils # (Auto) 6.0 x10^3/uL Lymphocytes # (Auto) 3.1 x10^3/uL Monocytes # (Auto) 0.8 x10^3/uL Eosinophils # (Auto) 0.0 x10^3/uL Basophils # (Auto) 0.1 x10^3/uL Prothrombin Time 13.2 SEC Prothromb Time International Ratio 1.0 Sodium Level 142 mmol/L 143 mmol/L Potassium Level 3.7 mmol/L 4.1 mmol/L Chloride Level 107 mmol/L 109 mmol/L Carbon Dioxide Level 24 mmol/L 25 mmol/L Anion Gap 11 9 Blood Urea Nitrogen 12 mg/dL 12 mg/dL Creatinine 1.0 mg/dL 0.9 mg/dL Estimated GFR (Cockcroft-Gault) 94.2 106.4 BUN/Creatinine Ratio 12 Glucose Level 111 mg/dL 92 mg/dL Calcium Level 9.1 mg/dL 8.7 mg/dL Total Bilirubin 0.3 mg/dL Aspartate Amino Transf (AST/SGOT) 16 U/L Alanine Aminotransferase (ALT/SGPT) 20 U/L Alkaline Phosphatase 140 U/L Total Protein 7.6 g/dL Albumin 3.6 g/dL Albumin/Globulin Ratio 0.9 Clostridium difficile Toxin B Gene Negative Urine Opiates Screen Neg Urine Methadone Screen Neg Urine Barbiturates Neg Urine Phencyclidine Screen Neg Urine Amphetamine/Methamphetamine Neg Urine Benzodiazepines Screen Neg Urine Cocaine Screen Neg Urine Cannabinoids Screen Neg Urine Ethyl Alcohol Neg PE: GEN: NAD LUNGS: CTAB HEART: RRR ABD: NABS, S/ND/NT NEURO/PSYCH: A & O �3 A/P: Rectal bleeding CAD - on Plavix and ASA (currently held, cardiology following) -- Hgb and BUN remain WNL, bleeding slowing. Resume clears and ADAT. If tolerates, consider DC w/ plan to pursue outpt colonoscopy - our office will contact to schedule. CAMELIA WALDROP Aug 12, 2019 09:20
[2019-08-12] MEDS ORDERED: PANT40TA77 PO (10:54)
--- NOTE | 2019-08-12 10:56 | PDOC3 ---
Discharge Summary Visit Information Date of Admission: Aug 11, 2019 Date of Discharge: Aug 12, 2019 Admitting Diagnosis Comment: Rectal bleeding CAD - on Plavix and ASA (currently held, cardiology following) Final Diagnosis Problems Medical Problems: (1) Cardiomyopathy Status: Acute (2) Rectal bleeding Status: Acute Brief Hospital Course Allergies Allergies Coded Allergies Type Severity Reaction Last Updated Verified No Known Drug Allergies 12/05/15 No Vital Signs Vital Signs Date Time Temp Pulse Resp B/P (MAP) Pulse Ox O2 Delivery O2 Flow Rate FiO2 08/12/19 09:14 55 121/76 08/12/19 08:20 Room Air 08/12/19 07:00 98.2 16 97 98.2 Lab Results Laboratory Tests Test 08/11/19 12:15 08/11/19 16:15 08/12/19 04:30 White Blood Count 10.1 x10^3/uL (4.0-11.0) 9.4 x10^3/uL (4.0-11.0) Red Blood Count 5.35 x10^6/uL (4.30-5.70) 4.75 x10^6/uL (4.30-5.70) Hemoglobin 15.6 g/dL (13.0-17.5) 13.8 g/dL (13.0-17.5) Hematocrit 46.3 % (39.0-53.0) 41.1 % (39.0-53.0) Mean Corpuscular Volume 87 fL (79-100) 87 fL (79-100) Mean Corpuscular Hemoglobin 29 pg (25-35) 29 pg (25-35) Mean Corpuscular Hemoglobin Concent 34 g/dL (31-37) 34 g/dL (31-37) Red Cell Distribution Width 14.2 % (11.5-14.5) 14.5 % (11.5-14.5) Platelet Count 264 x10^3/uL (140-400) 235 x10^3/uL (140-400) Neutrophils (%) (Auto) 59 % (31-73) Lymphocytes (%) (Auto) 31 % (24-48) Monocytes (%) (Auto) 8 % (0-9) Eosinophils (%) (Auto) 1 % (0-3) Basophils (%) (Auto) 1 % (0-3) Neutrophils # (Auto) 6.0 x10^3/uL (1.8-7.7) Lymphocytes # (Auto) 3.1 x10^3/uL (1.0-4.8) Monocytes # (Auto) 0.8 x10^3/uL (0.0-1.1) Eosinophils # (Auto) 0.0 x10^3/uL (0.0-0.7) Basophils # (Auto) 0.1 x10^3/uL (0.0-0.2) Prothrombin Time 13.2 SEC (11.7-14.0) Prothromb Time International Ratio 1.0 (0.8-1.1) Sodium Level 142 mmol/L (136-145) 143 mmol/L (136-145) Potassium Level 3.7 mmol/L (3.5-5.1) 4.1 mmol/L (3.5-5.1) Chloride Level 107 mmol/L (98-107) 109 mmol/L (98-107) Carbon Dioxide Level 24 mmol/L (21-32) 25 mmol/L (21-32) Anion Gap 11 (6-14) 9 (6-14) Blood Urea Nitrogen 12 mg/dL (8-26) 12 mg/dL (8-26) Creatinine 1.0 mg/dL (0.7-1.3) 0.9 mg/dL (0.7-1.3) Estimated GFR (Cockcroft-Gault) 94.2 106.4 BUN/Creatinine Ratio 12 (6-20) Glucose Level 111 mg/dL (70-99) 92 mg/dL (70-99) Calcium Level 9.1 mg/dL (8.5-10.1) 8.7 mg/dL (8.5-10.1) Total Bilirubin 0.3 mg/dL (0.2-1.0) Aspartate Amino Transf (AST/SGOT) 16 U/L (15-37) Alanine Aminotransferase (ALT/SGPT) 20 U/L (16-63) Alkaline Phosphatase 140 U/L (46-116) Total Protein 7.6 g/dL (6.4-8.2) Albumin 3.6 g/dL (3.4-5.0) Albumin/Globulin Ratio 0.9 (1.0-1.7) Clostridium difficile Toxin B Gene Negative (Negative) Urine Opiates Screen Neg (NEG) Urine Methadone Screen Neg (NEG) Urine Barbiturates Neg (NEG) Urine Phencyclidine Screen Neg (NEG) Urine Amphetamine/Methamphetamine Neg (NEG) Urine Benzodiazepines Screen Neg (NEG) Urine Cocaine Screen Neg (NEG) Urine Cannabinoids Screen Neg (NEG) Urine Ethyl Alcohol Neg (NEG) Laboratory Tests Test 08/11/19 12:15 08/11/19 16:15 08/12/19 04:30 White Blood Count 10.1 x10^3/uL (4.0-11.0) 9.4 x10^3/uL (4.0-11.0) Red Blood Count 5.35 x10^6/uL (4.30-5.70) 4.75 x10^6/uL (4.30-5.70) Hemoglobin 15.6 g/dL (13.0-17.5) 13.8 g/dL (13.0-17.5) Hematocrit 46.3 % (39.0-53.0) 41.1 % (39.0-53.0) Mean Corpuscular Volume 87 fL (79-100) 87 fL (79-100) Mean Corpuscular Hemoglobin 29 pg (25-35) 29 pg (25-35) Mean Corpuscular Hemoglobin Concent 34 g/dL (31-37) 34 g/dL (31-37) Red Cell Distribution Width 14.2 % (11.5-14.5) 14.5 % (11.5-14.5) Platelet Count 264 x10^3/uL (140-400) 235 x10^3/uL (140-400) Neutrophils (%) (Auto) 59 % (31-73) Lymphocytes (%) (Auto) 31 % (24-48) Monocytes (%) (Auto) 8 % (0-9) Eosinophils (%) (Auto) 1 % (0-3) Basophils (%) (Auto) 1 % (0-3) Neutrophils # (Auto) 6.0 x10^3/uL (1.8-7.7) Lymphocytes # (Auto) 3.1 x10^3/uL (1.0-4.8) Monocytes # (Auto) 0.8 x10^3/uL (0.0-1.1) Eosinophils # (Auto) 0.0 x10^3/uL (0.0-0.7) Basophils # (Auto) 0.1 x10^3/uL (0.0-0.2) Prothrombin Time 13.2 SEC (11.7-14.0) Prothromb Time International Ratio 1.0 (0.8-1.1) Sodium Level 142 mmol/L (136-145) 143 mmol/L (136-145) Potassium Level 3.7 mmol/L (3.5-5.1) 4.1 mmol/L (3.5-5.1) Chloride Level 107 mmol/L (98-107) 109 mmol/L (98-107) Carbon Dioxide Level 24 mmol/L (21-32) 25 mmol/L (21-32) Anion Gap 11 (6-14) 9 (6-14) Blood Urea Nitrogen 12 mg/dL (8-26) 12 mg/dL (8-26) Creatinine 1.0 mg/dL (0.7-1.3) 0.9 mg/dL (0.7-1.3) Estimated GFR (Cockcroft-Gault) 94.2 106.4 BUN/Creatinine Ratio 12 (6-20) Glucose Level 111 mg/dL (70-99) 92 mg/dL (70-99) Calcium Level 9.1 mg/dL (8.5-10.1) 8.7 mg/dL (8.5-10.1) Total Bilirubin 0.3 mg/dL (0.2-1.0) Aspartate Amino Transf (AST/SGOT) 16 U/L (15-37) Alanine Aminotransferase (ALT/SGPT) 20 U/L (16-63) Alkaline Phosphatase 140 U/L (46-116) Total Protein 7.6 g/dL (6.4-8.2) Albumin 3.6 g/dL (3.4-5.0) Albumin/Globulin Ratio 0.9 (1.0-1.7) Clostridium difficile Toxin B Gene Negative (Negative) Urine Opiates Screen Neg (NEG) Urine Methadone Screen Neg (NEG) Urine Barbiturates Neg (NEG) Urine Phencyclidine Screen Neg (NEG) Urine Amphetamine/Methamphetamine Neg (NEG) Urine Benzodiazepines Screen Neg (NEG) Urine Cocaine Screen Neg (NEG) Urine Cannabinoids Screen Neg (NEG) Urine Ethyl Alcohol Neg (NEG) Brief Hospital Course Mr. Sequeira is a 54 old AA male with CAD and cardiomyopathy on plavix ands ASA 325 and had BRBPR, HEmodynamcially stable, not anemic, abated on its own with conservative measures, REady for home today with holding ASA and plavix until outpt c scope that GI will schedule for him Pt seen and examined PPI to home - rx onc marley COnsults: Gi and cards Proc: none - did not need a bleeding scan or any scopes Discharge Information Condition at Discharge: Improved, Stable Follow Up: Weeks (GI for OP c scope, GI will shcedule him) Disposition/Orders: D/C to Home Scheduled Aspirin (Aspirin Ec) 325 Mg Tablet.dr, 325 MG PO DAILYWBKFT, #30 Prescribed by: ISH GUILLEN MD on 12/06/151138 Last Action: HELD on 08/11/191524 by ALAN MOREIRA MD Atorvastatin Calcium (Atorvastatin Calcium) 40 Mg Tablet, 40 MG PO QHS, #30 Prescribed by: ISH GUILLEN MD on 12/06/151138 Last Action: Continued on 08/11/191524 by ALNA MOREIRA MD Clopidogrel Bisulfate (Clopidogrel) 75 Mg Tablet, 75 MG PO DAILYWBKFT, #30 Prescribed by: ISH GUILLEN MD on 12/06/151138 Last Action: Continued on 08/11/191524 by ALAN MOREIRA MD Cyanocobalamin (Vitamin B-12) (Vitamin B12) 2,500 Mcg Tablet, 2,500 MCG PO DAILY, (Reported) Entered as Reported by: LITO GRIMALDO on 05/30/161155 Last Action: Converted on 08/11/191524 by ALAN MOREIRA MD Folic Acid (Folic Acid) 1 Mg Tablet, 1 MG PO DAILY, #20 Prescribed by: ISH GUILLEN MD on 12/06/151138 Last Action: Continued on 08/11/191524 by ALAN MOREIRA MD Furosemide (Lasix) 20 Mg Tablet, 1 TAB PO DAILY, #90 Ref 1 (Reported) Entered as Reported by: LITO GRIMALDO on 05/30/16 115 Last Action: Continued on 08/11/191524 by ALAN MOREIRA MD Lisinopril (Lisinopril) 10 Mg Tablet, 10 MG PO DAILY, #30 Prescribed by: ISH GUILLEN MD on 12/06/15 1139 Last Action: Continued on 08/11/19 152 by ALAN MOREIRA MD Metoprolol Tartrate (Metoprolol Tartrate) 25 Mg Tablet, 25 MG PO BID, #60 Prescribed by: ISH GUILLEN MD on 12/06/15 1139 Last Action: Continued on 08/11/191524 by ALAN MOREIRA MD Pantoprazole Sodium (Pantoprazole Sodium ) 40 Mg Tablet.dr, 40 MG PO DAILYAC for gi bleed, #60 Prescribed by: SRIKANTH NEVILLE on 08/12/19 1054 Potassium Chloride (Klor-Con M10) 10 Meq Tab.er.prt, 10 MEQ PO DAILYWBKFT, #30 Prescribed by: ISH GUILLEN MD on 12/06/15 1144 Last Action: Continued on 08/11/191524 by MD KELIN VALDES CHERRIE Y MD Aug 12, 2019 10:56
[2019-08-12 11:00] VITALS: BP 112/82
[2019-08-12 14:04] LABS: HEMATOCRIT 39.5 % (39.0-53.0); HEMOGLOBIN 13.1 g/dL (13.0-17.5); RED BLOOD COUNT 4.55 x10^6/uL (4.30-5.70); RED CELL DISTRIBUTION WIDTH 14.5 % (11.5-14.5); WHITE BLOOD COUNT 8.2 x10^3/uL (4.0-11.0)
[2019-08-12 15:00] VITALS: BP 115/67
--- NOTE | 2019-08-12 15:15 | PDOC ---
PROGRESS NOTES Subjective Subjective Patient seen and examined The patient is comfortable today. Objective Objective Vital Signs Date Time Temp Pulse Resp B/P (MAP) Pulse Ox O2 Delivery O2 Flow Rate FiO2 08/12/19 11:00 98.3 61 16 112/82 (92) 95 Room Air 98.3 Intake and Output 08/12/19 07:00 Intake Total 1470 ml Output Total 250 ml Balance 1220 ml Intake Oral 1470 ml Output Urine Total 250 ml # Bowel Movements 2 Physical Exam Abdomen: Normal bowel sounds Heart: Regular rate General: No acute distress Lungs: Clear to auscultation Assessment Assessment Problems Medical Problems: (1) Cardiomyopathy Status: Acute (2) Rectal bleeding Status: Acute 1. GI bleed/hematochezia: H&H today stable at 13.1 and 39.5. GI evaluating. Holding aspirin and Plavix. GI work up in progress. We will follow up as an outpatient. 2. CAD: multiple stents to LAD and LCx with chronically occluded RCA. Last stent placement 11/2015. Clinically stable. 3. ICM: EF 30-35%, compensated 4. AICD in situ: recently checked normal function 5. HTN: controlled 6. HLP 7. Tobaccoism 8. Chronic Alcoholism Comment Review of Relevant I have reviewed the following items trace (where applicable) has been applied. Labs Laboratory Tests Test 08/11/19 12:15 08/11/19 16:15 08/12/19 04:30 08/12/19 13:50 White Blood Count 10.1 x10^3/uL (4.0-11.0) 9.4 x10^3/uL (4.0-11.0) 8.2 x10^3/uL (4.0-11.0) Red Blood Count 5.35 x10^6/uL (4.30-5.70) 4.75 x10^6/uL (4.30-5.70) 4.55 x10^6/uL (4.30-5.70) Hemoglobin 15.6 g/dL (13.0-17.5) 13.8 g/dL (13.0-17.5) 13.1 g/dL (13.0-17.5) Hematocrit 46.3 % (39.0-53.0) 41.1 % (39.0-53.0) 39.5 % (39.0-53.0) Mean Corpuscular Volume 87 fL (79-100) 87 fL (79-100) 87 fL (79-100) Mean Corpuscular Hemoglobin 29 pg (25-35) 29 pg (25-35) 29 pg (25-35) Mean Corpuscular Hemoglobin Concent 34 g/dL (31-37) 34 g/dL (31-37) 33 g/dL (31-37) Red Cell Distribution Width 14.2 % (11.5-14.5) 14.5 % (11.5-14.5) 14.5 % (11.5-14.5) Platelet Count 264 x10^3/uL (140-400) 235 x10^3/uL (140-400) 230 x10^3/uL (140-400) Neutrophils (%) (Auto) 59 % (31-73) Lymphocytes (%) (Auto) 31 % (24-48) Monocytes (%) (Auto) 8 % (0-9) Eosinophils (%) (Auto) 1 % (0-3) Basophils (%) (Auto) 1 % (0-3) Neutrophils # (Auto) 6.0 x10^3/uL (1.8-7.7) Lymphocytes # (Auto) 3.1 x10^3/uL (1.0-4.8) Monocytes # (Auto) 0.8 x10^3/uL (0.0-1.1) Eosinophils # (Auto) 0.0 x10^3/uL (0.0-0.7) Basophils # (Auto) 0.1 x10^3/uL (0.0-0.2) Prothrombin Time 13.2 SEC (11.7-14.0) Prothromb Time International Ratio 1.0 (0.8-1.1) Sodium Level 142 mmol/L (136-145) 143 mmol/L (136-145) Potassium Level 3.7 mmol/L (3.5-5.1) 4.1 mmol/L (3.5-5.1) Chloride Level 107 mmol/L (98-107) 109 mmol/L (98-107) Carbon Dioxide Level 24 mmol/L (21-32) 25 mmol/L (21-32) Anion Gap 11 (6-14) 9 (6-14) Blood Urea Nitrogen 12 mg/dL (8-26) 12 mg/dL (8-26) Creatinine 1.0 mg/dL (0.7-1.3) 0.9 mg/dL (0.7-1.3) Estimated GFR (Cockcroft-Gault) 94.2 106.4 BUN/Creatinine Ratio 12 (6-20) Glucose Level 111 mg/dL (70-99) 92 mg/dL (70-99) Calcium Level 9.1 mg/dL (8.5-10.1) 8.7 mg/dL (8.5-10.1) Total Bilirubin 0.3 mg/dL (0.2-1.0) Aspartate Amino Transf (AST/SGOT) 16 U/L (15-37) Alanine Aminotransferase (ALT/SGPT) 20 U/L (16-63) Alkaline Phosphatase 140 U/L (46-116) Total Protein 7.6 g/dL (6.4-8.2) Albumin 3.6 g/dL (3.4-5.0) Albumin/Globulin Ratio 0.9 (1.0-1.7) Clostridium difficile Toxin B Gene Negative (Negative) Urine Opiates Screen Neg (NEG) Urine Methadone Screen Neg (NEG) Urine Barbiturates Neg (NEG) Urine Phencyclidine Screen Neg (NEG) Urine Amphetamine/Methamphetamine Neg (NEG) Urine Benzodiazepines Screen Neg (NEG) Urine Cocaine Screen Neg (NEG) Urine Cannabinoids Screen Neg (NEG) Urine Ethyl Alcohol Neg (NEG) Laboratory Tests Test 08/11/19 16:15 08/12/19 04:30 08/12/19 13:50 Urine Opiates Screen Neg (NEG) Urine Methadone Screen Neg (NEG) Urine Barbiturates Neg (NEG) Urine Phencyclidine Screen Neg (NEG) Urine Amphetamine/Methamphetamine Neg (NEG) Urine Benzodiazepines Screen Neg (NEG) Urine Cocaine Screen Neg (NEG) Urine Cannabinoids Screen Neg (NEG) Urine Ethyl Alcohol Neg (NEG) White Blood Count 9.4 x10^3/uL (4.0-11.0) 8.2 x10^3/uL (4.0-11.0) Red Blood Count 4.75 x10^6/uL (4.30-5.70) 4.55 x10^6/uL (4.30-5.70) Hemoglobin 13.8 g/dL (13.0-17.5) 13.1 g/dL (13.0-17.5) Hematocrit 41.1 % (39.0-53.0) 39.5 % (39.0-53.0) Mean Corpuscular Volume 87 fL (79-100) 87 fL (79-100) Mean Corpuscular Hemoglobin 29 pg (25-35) 29 pg (25-35) Mean Corpuscular Hemoglobin Concent 34 g/dL (31-37) 33 g/dL (31-37) Red Cell Distribution Width 14.5 % (11.5-14.5) 14.5 % (11.5-14.5) Platelet Count 235 x10^3/uL (140-400) 230 x10^3/uL (140-400) Sodium Level 143 mmol/L (136-145) Potassium Level 4.1 mmol/L (3.5-5.1) Chloride Level 109 mmol/L (98-107) Carbon Dioxide Level 25 mmol/L (21-32) Anion Gap 9 (6-14) Blood Urea Nitrogen 12 mg/dL (8-26) Creatinine 0.9 mg/dL (0.7-1.3) Estimated GFR (Cockcroft-Gault) 106.4 Glucose Level 92 mg/dL (70-99) Calcium Level 8.7 mg/dL (8.5-10.1) Medications Current Medications Pantoprazole Sodium (Protonix) 40 mg DAILYAC PO Last administered on 08/12/19at 09:14; Start 08/12/19 at 07:30 Multivitamins 10 ml/Thiamine HCl 100 mg/Folic Acid 1 mg/Sodium Chloride 1,011.2 ml @ 100 mls/ hr DAILY IV Last administered on 08/12/19at 09:14; Start 08/12/19 at 09:00; Stop 08/16/19 at 19:07 Multivitamins (Thera M Plus) 1 tab DAILY PO ; Start 08/17/19 at 09:00 Folic Acid (Folic Acid) 1 mg DAILY PO ; Start 08/12/19 at 09:00; Stop 08/11/19 at 15:29; Status DC Thiamine HCl 100 mg/Dextrose 51 ml @ 100 mls/hr DAILY IV ; Start 08/17/19 at 09:00; Stop 08/21/19 at 09:31 Lorazepam (Ativan) 4 mg PRN Q1HR PRN PO For CIWA 8-14; Start 08/11/19 at 15:30 Lorazepam (Ativan) 8 mg PRN Q1HR PRN PO For CIWA 15 or greater; Start 08/11/19 at 15:30 Lorazepam (Ativan Inj) 2 mg PRN Q1HR PRN IV For CIWA 8-14; Start 08/11/19 at 15:30 Lorazepam (Ativan Inj) 4 mg PRN Q1HR PRN IV For CIWA 15 or greater; Start 08/11/19 at 15:30 Diphenhydramine HCl (Benadryl) 25 mg PRN Q15MIN PRN IVP EPS symptoms 2'Haldol admin; Start 08/11/19 at 15:30 Clonidine HCl (Catapres) 0.1 mg PRN Q1HR PRN PO SBP > 180 or DBP > 100, MRX3; Start 08/11/19 at 15:30 Lorazepam (Ativan Inj) 2 mg PRN Q15MIN PRN IV SEE COMMENTS; Start 08/11/19 at 15:30; Status UNV Lorazepam (Ativan Inj) 4 mg PRN Q15MIN PRN IV SEE COMMENTS; Start 08/11/19 at 15:30; Stop 08/11/19 at 15:37; Status DC Atorvastatin Calcium (Lipitor) 40 mg QHS PO Last administered on 08/11/19at 21:20; Start 08/11/19 at 21:00 Clopidogrel Bisulfate (Plavix) 75 mg DAILYWBKFT PO ; Start 08/12/19 at 08:00; Stop 08/11/19 at 16:09; Status DC Folic Acid (Folic Acid) 1 mg DAILY PO ; Start 08/17/19 at 09:00 Furosemide (Lasix) 20 mg DAILY PO Last administered on 08/12/19at 09:14; Start 08/12/19 at 09:00 Lisinopril (Prinivil) 10 mg DAILY PO Last administered on 08/12/19at 09:14; Start 08/12/19 at 09:00 Metoprolol Tartrate (Lopressor) 25 mg BID PO Last administered on 08/12/19at 09:14; Start 08/11/19 at 21:00 Potassium Chloride (Klor-Con) 10 meq DAILYWBKFT PO Last administered on 08/12/19at 09:14; Start 08/12/19 at 08:00 Cyanocobalamin (Vitamin B-12) 2,000 mcg DAILY PO Last administered on 08/12/19at 09:14; Start 08/12/19 at 09:00 Active Scripts Active Pantoprazole Sodium (Pantoprazole Sodium) 40 Mg Tablet. 40 Mg PO DAILYAC Klor-Con M10 (Potassium Chloride) 10 Meq Tab.er.prt 10 Meq PO DAILYWBKFT Folic Acid 1 Mg Tablet 1 Mg PO DAILY Metoprolol Tartrate 25 Mg Tablet 25 Mg PO BID Lisinopril 10 Mg Tablet 10 Mg PO DAILY Clopidogrel (Clopidogrel Bisulfate) 75 Mg Tablet 75 Mg PO DAILYWBKFT Atorvastatin Calcium 40 Mg Tablet 40 Mg PO QHS Aspirin Ec (Aspirin) 325 Mg Tablet. 325 Mg PO DAILYWBKFT Reported Lasix (Furosemide) 20 Mg Tablet 1 Tab PO DAILY Vitamin B12 (Cyanocobalamin (Vitamin B-12)) 2,500 Mcg Tablet 2,500 Mcg PO DAILY Vitals/I & O Vital Sign - Last 24 Hours 08/11/19 08/11/19 08/11/19 08/11/19 16:07 19:00 20:00 21:20 Temp 98.5 98.5 Pulse 60 60 Resp 18 B/P (MAP) 119/83 (95) 119/83 Pulse Ox 97 O2 Delivery Room Air Room Air Room Air 08/11/19 08/12/19 08/12/19 08/12/19 23:00 03:00 07:00 08:20 Temp 97.4 98.6 98.2 97.4 98.6 98.2 Pulse 65 65 55 Resp 18 18 16 B/P (MAP) 120/81 (94) 94/48 (63) 121/76 (91) Pulse Ox 94 96 97 O2 Delivery Room Air Room Air Room Air Room Air 08/12/19 08/12/19 08/12/19 09:14 09:14 11:00 Temp 98.3 98.3 Pulse 55 55 61 Resp 16 B/P (MAP) 121/76 121/76 112/82 (92) Pulse Ox 95 O2 Delivery Room Air Intake and Output 08/11/19 08/11/1908/12/19 15:00 23:00 07:00 Intake Total 720 ml 750 ml Output Total 50 ml 200 ml Balance 670 ml 550 ml TIFFANY AYALA MD Aug 12, 2019 15:14
--- NOTE | 2019-08-12 19:00 | NUR ---
Discharge Note: JJ BALDWIN Discharge instructions and discharge home medications reviewed with Patient and a copy given. All questions have been answered and understanding verbalized. The following instructions and handouts were given: discharge instructions, new prescriptions, education and follow up recommendations. Discontinued lines and drains: Peripheral IV discontinued intact. Patient discharged to Home or Self Care with Self via Wheelchair off unit by [employer].
[2019-08-17] MEDS ORDERED: MULTIVITAMIN with MINERAL TABLET. PO SCH (09:00)
[2019-08-17] MEDS ORDERED: THIAMINE INJ 100 MG in IV DEXTROSE 5% 50 ML IV SCH (09:00)
[2019-08-17] MEDS ORDERED: FOLIC ACID 1 MG TABLET. PO SCH (09:00)
== END 2019-08-12 19:02 | disposition home or self-care (01) | DRG 378 ==
LOC: ER 11:49 → 5 SOUTH 14:00
PROVIDERS: ADMIT Family Medicine; ATTEND Family Medicine
DX: K62.5 Hemorrhage of anus and rectum (principal); I42.9 Cardiomyopathy, unspecified; E78.00 Pure hypercholesterolemia, unspecified; E11.9 Type 2 diabetes mellitus without complications; I48.91 Unspecified atrial fibrillation; E78.5 Hyperlipidemia, unspecified; I25.10 Atherosclerotic heart disease of native coronary artery without angina pectoris; I11.0 Hypertensive heart disease with heart failure; M19.90 Unspecified osteoarthritis, unspecified site; F17.210 Nicotine dependence, cigarettes, uncomplicated; I34.0 Nonrheumatic mitral (valve) insufficiency; I25.5 Ischemic cardiomyopathy; I50.9 Heart failure, unspecified; F10.20 Alcohol dependence, uncomplicated; Z95.5 Presence of coronary angioplasty implant and graft; Z79.899 Other long term (current) drug therapy; Z79.82 Long term (current) use of aspirin; Z79.02 Long term (current) use of antithrombotics/antiplatelets; Z82.49 Family history of ischemic heart disease and other diseases of the circulatory system
CPT/HCPCS: 36415; 80048; 80053; 80307; 85025; 85027; 85610; 86850; 86900; 86901; 87045; 87177; 87493; J7030; 99285-25; G0378

== ENCOUNTER → 2019-08-26 | Day surgery (SDC) | payer BC ==
[~2019-08-26] MED LIST changes: +IV RINGERS,LACTATED 1000ML 1,000 ML IV SCH; +LIDOCAINE 2% PF 5 ML VIAL. ONE; +PANT40TA77 PO; +PROPOFOL 40 ML IV ONE
[2019-08-26 10:40] VITALS: BP 104/68
--- NOTE | 2019-08-29 15:07 | PATHOLOGY ---
[facility] Accession Number: [id number] . 01 Material submitted: . rectum - RECTAL POLYP . 01 Clinical history: . Screening . 02 Diagnosis: Colorectal biopsy, rectal polyp: - Hyperplastic polyp. . ([facility]:mm; 08/29/2019) [facility] 08/29/2019 1014 Local . 02 Comment: There are no adenomatous changes or evidence of malignancy. . ([facility]:mm; 08/29/2019) . 02 Electronically signed: . Jeremy Munugia MD, Pathologist NPI- [id number] . 01 Gross description: . Received in formalin labeled "Sherman, Jonathon, rectal polyp," are 2 segments of payne soft tissue measuring 1.0 x 0.3 x 0.2 cm in aggregate dimensions and ranging from 0.4 to 0.6 cm in maximum dimension. The specimen is submitted entirely in cassette A1. (TSD; 08/26/2019) TOB/TOB 08/26/2019 1726 Local . 02 Pathologist provided ICD-10: K63.5 . 02 CPT . 909770 Specimen Comment: Report sent to Performed at: [facility] [address], [place] [id number] MD Pipo Bullard MD Phone: [phone] Performed at: 02 [facility] [address], [place] [id number] MD Jeremy Munguia MD Phone: [phone]
== END ==
LOC: SURG 09:18
PROVIDERS: ATTEND Internal Medicine Gastroenterology
DX: K62.1 Rectal polyp (principal); K57.30 Diverticulosis of large intestine without perforation or abscess without bleeding; K64.0 First degree hemorrhoids; I25.10 Atherosclerotic heart disease of native coronary artery without angina pectoris; I10 Essential (primary) hypertension; E78.5 Hyperlipidemia, unspecified; G47.33 Obstructive sleep apnea (adult) (pediatric); Z95.810 Presence of automatic (implantable) cardiac defibrillator; Z95.5 Presence of coronary angioplasty implant and graft; Z72.89 Other problems related to lifestyle
CPT/HCPCS: 45380; 88305; J2001; J2704

== ENCOUNTER → 2020-06-26 | Outpatient (CLI) | payer BC ==
[2019-08-26 10:40] VITALS: BP 104/68
[~2020-06-26] MED LIST changes: -IV RINGERS,LACTATED 1000ML 1,000 ML IV SCH; -LIDOCAINE 2% PF 5 ML VIAL. ONE; -PROPOFOL 40 ML IV ONE
--- NOTE | 2020-06-26 10:08 | CARD ---
MR#: [id number] Date of Study: 06/26/2020 Ordering Physician: TIFFANY AYALA, Referring Physician: TIFFANY AYALA, Tech: Mandy Sahni [facility] APPROVED REPORT EXAM: Two-dimensional and M-mode echocardiogram with Doppler and color Doppler. Other Information Quality : Good INDICATION Ischemic Cardiomyopathy 2D DIMENSIONS Left Atrium(2D)4.2 (1.6-4.0cm)IVSd0.8 (0.7-1.1cm) Aortic Root(2D)3.1 (2.0-3.7cm)LVDd5.4 (3.9-5.9cm) LVOT Diameter2.1 (1.8-2.4cm)PWd0.8 (0.7-1.1cm) LVDs4.7 (2.5-4.0cm)FS (%) 13.9 % SV41.8 mlLVEF(%)29.3 (>50%) Aortic Valve AoV Peak Tor.106.3cm/sAoV VTI20.6cm AO Peak GR.4.5mmHgLVOT Peak Tor.87.8cm/s LVOT VTI 15.78cmAO Mean GR.3mmHg SHAKEEL (VMAX)2.63dy7IQI (VTI)2.63cm2 Mitral Valve MV E Qytwlgak48.4cm/sMV DECEL TWGC590ud MV A Crwsjbgf38.6cm/sMV FJL06sd E/A Ratio1.6MVA (PHT)4.22cm2 TDI E/Lateral E'6.4E/Medial E'24.9 Tricuspid Valve TR P. Lmuqblal687nn/sRAP NELKXFIF0zjXg TR Peak Gr.85wmSmTTFE43gpCp Pulmonary Vein S1 Vlxwjcxz24.4cm/sD2 Xlikymlg91.5cm/s LEFT VENTRICLE The left ventricle is normal size. There is normal left ventricular wall thickness. Left ventricle sy stolic function is severely impaired. The Ejection Fraction is 30-35%. There is moderate global hypok inesis with severe hypokinesis to akinsesis of the inferior/lateral [place]. Transmitral Doppler flow p attern is Grade I-abnormal relaxation pattern. RIGHT VENTRICLE The right ventricle is normal size. The right ventricular systolic function is normal. ATRIA The left atrium is mildly dilated. The right atrium size is normal. The interatrial septum is intact with no evidence for an atrial septal defect or patent foramen ovale as noted on 2-D or Doppler imagi ng. AORTIC VALVE The aortic valve is not well visualized but appears to be functioning well by Doppler interrogation. Doppler and Color Flow revealed no significant aortic regurgitation. There is no significant aortic v alvular stenosis. MITRAL VALVE The mitral valve is calcified but opens well. There is no evidence of mitral valve prolapse. There is no mitral valve stenosis. Doppler and Color-flow revealed moderate mitral regurgitation. TRICUSPID VALVE The tricuspid valve is normal in structure and function. Doppler and Color Flow revealed trace tricus pid regurgitation. The PA pressure was estimated at 29 mmHg. There is no tricuspid valve stenosis. PULMONIC VALVE The pulmonic valve is not well visualized. Doppler and Color Flow revealed no pulmonic valvular regur gitation. There is no pulmonic valvular stenosis. GREAT VESSELS The aortic root is normal in size. The ascending aorta is not well seen. The IVC is normal in size an d collapses >50% with inspiration. PERICARDIAL EFFUSION There is no evidence of significant pericardial effusion. Critical Notification Critical Value: No <Conclusion> Left ventricle systolic function is severely impaired. The Ejection Fraction is 30-35%. There is moderate global hypokinesis with severe hypokinesis to akinsesis of the inferior/lateral wal ls. Doppler and Color-flow revealed moderate mitral regurgitation. Signed by : Elio Méndez, Electronically Approved : 06/26/2020 10:08:14
== END | disposition home or self-care (01) ==
LOC: ECHO 07:29
PROVIDERS: ATTEND Internal Medicine Cardiovascular Disease
DX: I34.0 Nonrheumatic mitral (valve) insufficiency (principal); I25.5 Ischemic cardiomyopathy; Z95.0 Presence of cardiac pacemaker
CPT/HCPCS: 93306

== ENCOUNTER 2022-03-20 08:40 | Emergency (ER) | payer OTHER ==
[~2022-03-20] VITALS: Ht 175.3 cm; Wt 73.6 kg
[~2022-03-20 08:40] MED LIST changes: +LISI10TA16 PO; -LISI10TA2 PO; +POTA-116 PO; -POTA10TA12 PO
[2022-03-20] MEDS ORDERED: HYDROmorphone 2 MG/ML INJ. IVP ONE (09:30)
[2022-03-20 09:37] LABS: BASO % 1 % (0-3); EOS % 0 % (0-3); HEMATOCRIT 45.8 % (39.0-53.0); HEMOGLOBIN 15.3 g/dL (13.0-17.5); LYMPH # 1.6 x10^3/uL (1.0-4.8); LYMPH % 16 % (24-48); MEAN CORPUSCULAR HEMOGLOBIN 29 pg (25-35); MEAN CORPUSCULAR HGB CONC 33 g/dL (31-37); MEAN CORPUSCULAR VOLUME 87 fL (79-100); MONO # 1.2 x10^3/uL (0.0-1.1); MONO % 11 % (0-9); NEUT # 7.6 x10^3/uL (1.8-7.7); NEUT % 73 % (31-73); PLATELET COUNT 328 x10^3/uL (140-400); RED BLOOD COUNT 5.25 x10^6/uL (4.30-5.70); RED CELL DISTRIBUTION WIDTH 14.6 % (11.5-14.5); WHITE BLOOD COUNT 10.5 x10^3/uL (4.0-11.0)
--- NOTE | 2022-03-20 09:46 | PHYS DOC ---
Past Medical History Past Medical History: A-Fib, Diabetes-Type II, High Cholesterol, Hypertension, [place] Past Surgical History: Pacemaker, Other Additional Past Surgical Histo: cardiac cath with stent placement Smoking Status: Current Every Day Smoker Alcohol Use: Heavy Drug Use: None General Adult EDM: Chief Complaint: GROIN PAIN HPI: HPI: Is a 56-year-old male who presents today with left groin pain. Patient states that on Thursday he was walking slipped and fell and did the splits when he fell, he said approximately 1 to 2 hours after he fell he started having some left groin pain, he states that the pain is now moved into his left testicle and he has come here for evaluation and treatment. Patient denies fever or chills, or painful urination or blood in his urine. Review of Systems: Review of Systems: Constitutional: Denies fever or chills. [] Eyes: Denies change in visual acuity. [] HENT: Denies nasal congestion or sore throat. [] Respiratory: Denies cough or shortness of breath. [] Cardiovascular: Denies chest pain or edema. [] GI: Denies abdominal pain, nausea, vomiting, bloody stools or diarrhea. [] : Left testicular pain, left groin pain Musculoskeletal: Denies back pain or joint pain. [] Integument: Denies rash. [] Neurologic: Denies headache, focal weakness or sensory changes. [] Endocrine: Denies polyuria or polydipsia. [] Lymphatic: Denies swollen glands. [] Psychiatric: Denies depression or anxiety. [] Heart Score: C/O Chest Pain: No Risk Factors: Risk Factors: DM, Current or recent (<one month) smoker, HTN, HLP, family history of CAD, obesity. Risk Scores: Score 0 - 3: 2.5% MACE over next 6 weeks - Discharge Home Score 4 - 6: 20.3% MACE over next 6 weeks - Admit for Clinical Observation Score 7 - 10: 72.7% MACE over next 6 weeks - Early Invasive Strategies Current Medications: Current Medications Medications (Trade) Dose Ordered Sig/Jared Start Time Stop Time Status Last Admin Dose Admin Hydromorphone HCl (Dilaudid) 0.5 mg 1X ONCE 03/20/22 09:30 03/20/22 09:31 DC 03/20/22 09:37 0.5 MG Allergies: Allergies: Allergies Coded Allergies Type Severity Reaction Last Updated Verified No Known Drug Allergies 08/26/19 No Physical Exam: PE: Constitutional: Well developed, well nourished, no acute distress, non-toxic appearance. [] HENT: Normocephalic, atraumatic, bilateral external ears normal, oropharynx moist, no oral exudates, nose normal. [] Eyes: PERRLA, EOMI, conjunctiva normal, no discharge. [] Neck: Normal range of motion, no tenderness, supple, no stridor. [] Cardiovascular:Heart rate regular rhythm, no murmur [] Lungs & Thorax: Bilateral breath sounds clear to auscultation [] Abdomen: Bowel sounds normal, soft, no tenderness, no masses, no pulsatile masses. [] Skin: Warm, dry, no erythema, no rash. [] Back: No tenderness, no CVA tenderness. [] Extremities: No tenderness, no cyanosis, no clubbing, ROM intact, no edema. [] Neurologic: Alert and oriented X 3, normal motor function, normal sensory function, no focal deficits noted. [] Psychologic: Affect normal, judgement normal, mood normal. [] : Pain located in the left inguinal area, left testicle is swollen, absent Cremastreric reflux on left side Current Patient Data: Labs: Laboratory Tests Test 03/20/22 09:20 03/20/22 09:25 Urine Collection Type Unknown Urine Color (Auto) Light orange Urine Turbidity Turbid Urine pH (Auto) 5.5 Urine Specific Ross 1.021 Urine Protein (Auto) 50 mg/dL Urine Glucose (Auto)(UA) Negative mg/dL Urine Ketones (Auto) Negative mg/dL Urine Blood (Auto) Large Urine Nitrite Negative Urine Bilirubin (Auto) Negative Urine Urobilinogen (Auto) 2 mg/dL Urine Leukocyte Esterase (Auto) Large Urine RBC Field obscured /HPF Urine WBC Tntc /HPF Urine Bacteria Moderate /HPF White Blood Count 10.5 x10^3/uL Red Blood Count 5.25 x10^6/uL Hemoglobin 15.3 g/dL Hematocrit 45.8 % Mean Corpuscular Volume 87 fL Mean Corpuscular Hemoglobin 29 pg Mean Corpuscular Hemoglobin Concent 33 g/dL Red Cell Distribution Width 14.6 % Platelet Count 328 x10^3/uL Neutrophils (%) (Auto) 73 % Lymphocytes (%) (Auto) 16 % Monocytes (%) (Auto) 11 % Eosinophils (%) (Auto) 0 % Basophils (%) (Auto) 1 % Neutrophils # (Auto) 7.6 x10^3/uL Lymphocytes # (Auto) 1.6 x10^3/uL Monocytes # (Auto) 1.2 x10^3/uL Eosinophils # (Auto) 0.0 x10^3/uL Basophils # (Auto) 0.0 x10^3/uL Prothrombin Time 13.9 SEC Prothromb Time International Ratio 1.1 Activated Partial Thromboplast Time 29 SEC Sodium Level 138 mmol/L Potassium Level 3.9 mmol/L Chloride Level 101 mmol/L Carbon Dioxide Level 25 mmol/L Anion Gap 12 Blood Urea Nitrogen 18 mg/dL Creatinine 1.1 mg/dL Estimated GFR (Cockcroft-Gault) 83.8 Glucose Level 154 mg/dL Calcium Level 8.9 mg/dL Current Medications Medications (Trade) Dose Ordered Sig/Jared Route PRN Reason Start Time Stop Time Status Last Admin Dose Admin Hydromorphone HCl (Dilaudid) 0.5 mg 1X ONCE IVP 03/20/22 09:30 03/20/22 09:31 DC 03/20/22 09:37 Ceftriaxone Sodium (Rocephin) 1 gm 1X ONCE IVP 03/20/22 10:15 03/20/22 10:21 DC Vital Signs: Vital Signs Date Time Temp Pulse Resp B/P (MAP) Pulse Ox O2 Delivery O2 Flow Rate FiO2 03/20/22 11:19 69 16 108/68 (81) 91 Room Air 03/20/22 10:49 69 18 105/66 (79) 92 Room Air 03/20/22 10:19 75 16 106/61 (76) 92 Room Air 03/20/22 09:49 78 16 106/61 (76) 95 Room Air 03/20/22 09:37 18 93 Room Air 03/20/22 08:52 98.1 74 18 120/76 (91) 97 Room Air 98.1 Vital Signs Date Time Temp Pulse Resp B/P (MAP) Pulse Ox O2 Delivery O2 Flow Rate FiO2 03/20/22 09:37 18 93 Room Air 03/20/22 08:52 98.1 74 120/76 (91) 98.1 EKG: EKG: [] Radiology/Procedures: Radiology/Procedures: [REASON: left testicular pain PROCEDURE: TESTICULAR/SCROTUM Testicular ultrasound History: Reason: left testicular pain / Spl. Instructions: / History: . Comparison: None. Technique: Multiple grayscale, color flow Doppler and Doppler spectral analysis images of the scrotum are obtained. Findings: The right testis measures 4.2 x 3.4 x 2.2 cm. The left testis measures 3.7 x 3 x 2.3 cm. Right testicle demonstrates normal parenchymal echogenicity. The right epididymis is unremarkable. Left testicle demonstrates normal parenchymal echogenicity. The left epididymis body and tail are enlarged and hypervascular. The tail measures up to 1.8 cm. There is no hydrocele or varicocele. Scrotal hyperemia or swelling are not seen. Doppler imaging demonstrates normal flow to both testicles, without evidence of torsion. IMPRESSION: 1. The left epididymis body and tail are enlarged and hypervascular suggesting epididymitis. 2. No evidence of testicular mass or torsion. Electronically signed by: Garret West MD (03/20/2022 10:16 AM) [id number] ] Course & Med Decision Making: Course & Med Decision Making Pertinent Labs and Imaging studies reviewed. (See chart for details) 1030 reviewed radiological and laboratory results with patient, did inform him he had an infection of his testicle and that he will need to take oral antibiotics on an outpatient basis for the next 10 days, if after 5 to 7 days he continues to have any more pain or increased pain he will need to follow-up with urology or his primary care physician. Patient was given strict return precautions and verbalized understanding of this. Amanda Disclaimer: Amanda Disclaimer: This electronic medical record was generated, in whole or in part, using a voice recognition dictation system. Departure Departure Impression: Primary Impression: Epididymitis, left Disposition: HOME / SELF CARE / HOMELESS Condition: STABLE Referrals: NO PCP (PCP) TEOFILO BROWN DO Patient Instructions: Epididymitis Additional Instructions: Levaquin 500 mg take 1 tablet daily for 10 full days Wear jockstrap to support your testicles Motrin 600 mg take 1 tablet every 6 hours as needed for pain Follow-up with Dr. Brown or your primary care physician or 1 of listed clinics below for further evaluation and management of your pain should it continue past 10 days. [facility] [address] [place] [address] [facility] [address] [place] [address] [facility] [address] [facility] [place] [address] [facility] [address] [place] [address] [facility] [address] [place] [address] [address] [place] [address] [address]low [address] [place] [address] [facility] [address] [place] [address] [facility] [address] [place] [address] [facility] [address] [place] [address] Scripts Ibuprofen (IBUPROFEN) 600 Mg Tablet 600 MG PO PRN Q6HRS PRN for INFLAMMATION, #30 TAB Prov: VICTORIA HERRERA MINE BOSS 03/20/22 Levofloxacin (LEVOFLOXACIN) 500 Mg Tablet 1 TAB PO DAILY, #10 TAB Prov: VICTORIA HERRERA MINE BOSS 03/20/22 VICTORIA HERRERA MINE BOSS Mar 20, 2022 09:46
[2022-03-20 09:48] LABS: BACTERIA,URINE MODERATE /HPF (0-FEW); RBC,URINE FIELD OBSCURED /HPF (0-2); WBC,URINE TNTC /HPF (0-4)
[2022-03-20 09:52] LABS: CALCIUM 8.9 mg/dL (8.5-10.1); CREATININE 1.1 mg/dL (0.7-1.3); GFR 83.8; PROTHROMBIN TIME PATIENT 13.9 SEC (11.7-14.0)
[2022-03-20 09:53] LABS: POTASSIUM 3.9 mmol/L (3.5-5.1)
[2022-03-20] MEDS ORDERED: cefTRIAXone IV Push 1 GM VIAL. IVP ONE (10:15)
--- NOTE | 2022-03-20 10:19 | RAD ---
Testicular ultrasound History: Reason: left testicular pain / Spl. Instructions: / History: . Comparison: None. Technique: Multiple grayscale, color flow Doppler and Doppler spectral analysis images of the scrotum are obtained. Findings: The right testis measures 4.2 x 3.4 x 2.2 cm. The left testis measures 3.7 x 3 x 2.3 cm. Right testicle demonstrates normal parenchymal echogenicity. The right epididymis is unremarkable. Left testicle demonstrates normal parenchymal echogenicity. The left epididymis body and tail are e nlarged and hypervascular. The tail measures up to 1.8 cm. There is no hydrocele or varicocele. Scrotal hyperemia or swelling are not seen. Doppler imaging demonstrates normal flow to both testicles, without evidence of torsion. IMPRESSION: 1. The left epididymis body and tail are enlarged and hypervascular suggesting epididymitis. 2. No evidence of testicular mass or torsion. Electronically signed by: Garret West MD (03/20/2022 10:16 AM) [id number]
[2022-03-20] MEDS ORDERED: LEVO500T9 PO (10:35)
[2022-03-20] MEDS ORDERED: IBUP-1007 PO (10:35)
[2022-03-20 11:19] VITALS: BP 108/68
== END 2022-03-20 11:25 | disposition home or self-care (01) ==
LOC: ER 08:40
DX: N45.1 Epididymitis (principal); I48.91 Unspecified atrial fibrillation; E11.9 Type 2 diabetes mellitus without complications; E78.00 Pure hypercholesterolemia, unspecified; I10 Essential (primary) hypertension; I25.2 Old myocardial infarction; F17.210 Nicotine dependence, cigarettes, uncomplicated; F10.20 Alcohol dependence, uncomplicated; Z95.0 Presence of cardiac pacemaker; Y90.9 Presence of alcohol in blood, level not specified
CPT/HCPCS: 36415; 76870; 80048; 81001; 85025; 85610; 85730; 87077; 87086; 87186; 96374; 96375; 99285; J0696; J1170